=== PATIENT | female | born 1970 | race Caucasian/White ===

== ENCOUNTER 2016-09-12 09:42 | Emergency (ER) | payer OTHER ==
[2016-09-12 09:42] VITALS: BP 149/86
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
[2016-09-12] MEDS ORDERED: HYDR-971 PO (10:55)
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
[2016-09-12] MEDS ORDERED: IBUP800T19 PO (11:17)
[2016-09-12] MEDS ORDERED: HYDROcodone/APAP 7.5/325MG 1 TAB TABLET PO ONE (11:45)
[2016-09-12] MEDS ORDERED: ALBU8.5H8 INH (11:55)
== END 2016-09-12 12:16 | disposition home or self-care (01) ==
LOC: EEVIPCON 09:42 → ER 09:42
DX: S22.32XA Fracture of one rib, left side, initial encounter for closed fracture (principal); S02.2XXA Fracture of nasal bones, initial encounter for closed fracture; S09.90XA Unspecified injury of head, initial encounter; S00.12XA Contusion of left eyelid and periocular area, initial encounter; S00.11XA Contusion of right eyelid and periocular area, initial encounter; T74.11XA Adult physical abuse, confirmed, initial encounter; S01.511A Laceration without foreign body of lip, initial encounter; J45.909 Unspecified asthma, uncomplicated; I10 Essential (primary) hypertension; E11.9 Type 2 diabetes mellitus without complications; Z77.22 Contact with and (suspected) exposure to environmental tobacco smoke (acute) (chronic); Y04.0XXA Assault by unarmed brawl or fight, initial encounter; Y93.89 Activity, other specified; Y99.8 Other external cause status; Y92.89 Other specified places as the place of occurrence of the external cause
CPT/HCPCS: 70450; 70486; 71101; 99284-25

== ENCOUNTER 2016-09-17 18:31 | Emergency (ER) | payer OTHER ==
[~2016-09-17] VITALS: Ht 165.1 cm; Wt 68.0 kg
[~2016-09-17 18:31] MED LIST: ALBU8.5H8 INH; HYDR-971 PO; IBUP800T19 PO
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
[2016-09-17 19:23] LABS: BASO # 0.1 x10^3/uL (0.0-0.2); BASO % 1 % (0-3); EOS # 0.1 x10^3/uL (0.0-0.7); EOS % 1 % (0-3); HEMATOCRIT 39.9 % (36.0-47.0); HEMOGLOBIN 13.6 g/dL (12.0-15.5); LYMPH # 2.5 x10^3/uL (1.0-4.8); LYMPH % 32 % (24-48); MEAN CORPUSCULAR HEMOGLOBIN 31 pg (25-35); MEAN CORPUSCULAR HGB CONC 34 g/dL (31-37); MEAN CORPUSCULAR VOLUME 90 fL (79-100); MONO # 0.4 x10^3/uL (0.0-1.1); MONO % 5 % (0-9); NEUT # 4.8 x10^3uL (1.8-7.7); NEUT % 62 % (31-73); PLATELET COUNT 269 x10^3/uL (140-400); RED BLOOD COUNT 4.43 x10^6/uL (3.50-5.40); RED CELL DISTRIBUTION WIDTH 15.1 % (11.5-14.5); WHITE BLOOD COUNT 7.9 x10^3/uL (4.0-11.0)
[2016-09-17 19:34] LABS: ALBUMIN 3.3 g/dL (3.4-5.0); ALBUMIN/GLOBULIN RATIO 0.9 (1.0-1.7); CALCIUM 8.6 mg/dL (8.5-10.1); CREATININE 1.2 mg/dL (0.6-1.0); GFR 48.6; POTASSIUM 3.9 mmol/L (3.5-5.1); TOTAL BILIRUBIN 0.1 mg/dL (0.2-1.0); TOTAL PROTEIN 7.1 g/dL (6.4-8.2)
[2016-09-17 20:18] LABS: BILIRUBIN,URINE NEG (NEG); CLARITY,URINE HAZY; COLOR,URINE YELLOW; GLUCOSE,URINE NEG (NEG); NITRITE,URINE NEG (NEG); UROBILINOGEN,URINE 0.2 mg/dL (0.2 mg/dL)
[2016-09-17 20:19] LABS: BACTERIA,URINE MOD /HPF (0-FEW); SQUAMOUS EPITHELIAL CELL,UR MOD /LPF; YEAST,URINE PRESENT /HPF
[2016-09-17] MEDS ORDERED: IOHEXOL 300 MG/ML 75 ML VIAL. IV ONE (20:30)
[2016-09-17 20:47] VITALS: BP 109/83
--- NOTE | 2016-09-17 21:23 | RAD ---
EXAM: CT angiography of the chest with intravenous contrast. HISTORY: Elevated d-dimer. TECHNIQUE: Computed tomographic images of the chest were obtained following the administration of 75 cc Omnipaque 300 intravenous contrast according to angiography protocol. Multiplanar reformatting was performed and 3-dimensional maximum intensity projection images were obtained. *One or more of the following individualized dose reduction techniques were utilized for this examination: 1. Automated exposure control. 2. Adjustment of the mA and/or kV according to patient size. 3. Use of iterative reconstruction technique. COMPARISON: None. FINDINGS: There is no evidence of pulmonary embolism. The heart is normal in size. There is trace pericardial fluid or thickening. There is no pathologically enlarged lymph node. There is no infiltrate, effusion or pneumothorax. There is posterior dependent atelectasis. There is lingular atelectasis or scarring. The upper abdomen is unremarkable. There are healed anterior right second and third rib fractures and there is a chronic ununited or partially ununited anterior right fourth rib fracture. IMPRESSION: No evidence of pulmonary embolism or alternative acute pulmonary finding. Electronically signed by: Nereida Antoine MD (09/17/2016 9:19 PM) [facility]
--- NOTE | 2016-09-17 21:23 | EKG ---
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
--- NOTE | 2016-09-18 08:23 | RAD ---
Chest radiograph 2 views 09/17/2016 Clinical indication: Chest pain with known rib fracture deformities. Comparison: 09/12/2016 chest radiograph and same day CTA chest. Findings: Cardiac and mediastinal silhouettes are within normal limits. No pleural effusion, pneumothorax or focal consolidation. Known right rib fracture deformities are not well visualized. Impression: No acute cardiopulmonary abnormality. Please see separately dictated CTA chest same day for additional findings.
== END 2016-09-17 21:40 | disposition home or self-care (01) ==
LOC: ER 18:31
DX: R07.89 Other chest pain (principal); I10 Essential (primary) hypertension; E11.9 Type 2 diabetes mellitus without complications; J45.909 Unspecified asthma, uncomplicated; F14.10 Cocaine abuse, uncomplicated; Z77.22 Contact with and (suspected) exposure to environmental tobacco smoke (acute) (chronic); Z91.041 Radiographic dye allergy status; Z88.0 Allergy status to penicillin; Z91.013 Allergy to seafood
CPT/HCPCS: 36415; 71020; 71275; 80053; 81001; 84484; 85027; 85379; 87086; 93005; 99285; Q9967; 87186

== ENCOUNTER 2020-02-03 04:50 | Emergency (ER) | payer SELFPAY ==
[~2020-02-03] VITALS: Ht 165.1 cm; Wt 115.0 kg
[~2020-02-03 04:50] MED LIST changes: +ALBU2.5V8 INH; -ALBU8.5H8 INH; +HYDR-3165 PO; -HYDR-971 PO
[2020-02-03 04:55] VITALS: BP 140/90
--- NOTE | 2020-02-03 05:02 | PHYS DOC ---
Past History Past Medical History: Asthma, Depression, Diabetes, High Cholesterol, Hypertension Past Medical History MRSA Past Surgical History: Hysterectomy Smoking: Second-hand Alcohol Use: None Drug Use: Cocaine General Adult HPI: HPI: ".. I woke up with this severe dental and jaw pain .. .here on the Lt. my face is swollen.. and even my ear hurts... " Patient is a 49 year old female who presents with above hx and complaints left sided dental pain and facial cellulitis. Patient does have adenopathy at the angle of the jaw. TM is clear on left. There is some adenopathy in anterior chain on the left. No trismus. Does have a few teeth left which appears to have dental decay. Very tender to percussion. No pointing abscess. Does have gingivitis. The most tender teeth are #18 and 15. Patient states she cannot take penicillin because it causes a rash. Patient does not know if she is allergic to other antibiotics. Patient states she quit smoking a few days ago. No recent travel. No history immunosuppression. No history of specific ill contacts. Patient no longer follows with Dr. Boggs. Review of Systems: Review of Systems: Constitutional: Denies fever or chills Eyes: Denies change in visual acuity HENT: Complains of dental pain and left facial cellulitis Respiratory: Denies cough or shortness of breath Cardiovascular: Denies chest pain or edema GI: Denies abdominal pain, nausea, vomiting, bloody stools or diarrhea : Denies dysuria Musculoskeletal: Denies back pain or joint pain Integument: Denies rash Neurologic: Denies headache, focal weakness or sensory changes Endocrine: Denies polyuria or polydipsia Lymphatic: Denies swollen glands Psychiatric: Denies depression or anxiety Family History: Family History: Noncontributory to presentation Current Medications: Current Meds: See nursing for home meds Allergies: Allergies: Allergies Coded Allergies Type Severity Reaction Last Updated Verified Penicillins Allergy Unknown 09/12/16 Yes shellfish derived Allergy Unknown 09/12/16 Yes Physical Exam: PE: Constitutional: Moderate acute distress, non-toxic appearance. [] HENT: Normocephalic, atraumatic, bilateral external ears normal, oropharynx moist, no oral exudates, nose normal. Left facial cellulitis. Left TM is clear. Few teeth left which all appear to have dental decay. No trismus. Does have adenopathy at angle of left mandible. Teeth 15 and 18 are very tender to touch or percussion. No pointing abscess. Eyes: PERRLA, EOMI, conjunctiva normal, no discharge. [] Neck: Normal range of motion, no tenderness, supple, no stridor. Does have adenopathy at the angle jaw and a few areas of adenopathy anterior chain left- sided neck. Cardiovascular:Heart rate regular rhythm, no murmur [] Lungs & Thorax: Bilateral breath sounds equal apex with few scattered wheezes on auscultation [] Abdomen: Bowel sounds normal, soft, no tenderness, no masses, no pulsatile masses. Obese. Old surgery scars. Skin: Warm, dry, no erythema, no rash. Tattoos. Back: No tenderness, no CVA tenderness. [] Extremities: No tenderness, no cyanosis, no clubbing, ROM intact, no edema. [] Neurologic: Alert and oriented X 3, normal motor function, normal sensory function, no focal deficits noted. [] Psychologic: Affect anxious, judgement normal, mood normal. [] EKG: EKG: [] Radiology/Procedures: Radiology/Procedures: [] Heart Score: Risk Factors: Risk Factors: DM, Current or recent (<one month) smoker, HTN, HLP, family history of CAD, obesity. Risk Scores: Score 0 - 3: 2.5% MACE over next 6 weeks - Discharge Home Score 4 - 6: 20.3% MACE over next 6 weeks - Admit for Clinical Observation Score 7 - 10: 72.7% MACE over next 6 weeks - Early Invasive Strategies Course & Med Decision Making: Course & Med Decision Making Pertinent Labs and Imaging studies reviewed. (See chart for details) Patient must follow-up with dentist or oral surgeon. If unable to get into a surgeon or dentist locally. Consider follow-up at [facility]. Patient to also consider follow-up at oral surgery at the [facility]. Patient take Tylenol and ibuprofen for pain. Patient take Bactrim DS twice a day. Rinse mouth with Listerine 4 times a day. Must follow-up. Most likely will need extraction of offending teeth. Impression: 1. Dental Pain 2. Facial Cellulitis [] Dony Disclaimer: Dony Disclaimer: This electronic medical record was generated, in whole or in part, using a voice recognition dictation system. Departure Departure: Referrals: PCP,NO (PCP) Scripts Sulfamethoxazole/Trimethoprim (BACTRIM DS TABLET) 1 Each Tablet 1 TAB PO BID for dental and facial cellulitis for 10 Days, #20 TAB 0 Refills Prov: SAUMYA MÉNDEZ MD 02/03/20 Dony Disclaimer This chart was dictated in whole or in part using Voice Recognition software in a busy, high-work load, and often noisy Emergency Department environment. It m ay contain unintended and wholly unrecognized errors or omissions. SAUMYA MÉNDEZ MD Feb 03, 2020 05:02
[2020-02-03] MEDS ORDERED: SMZ/TMP 800/160MG TABLET. PO ONE ×2 (05:15→05:18)
[2020-02-03] MEDS ORDERED: KETOROLAC 60 MG/2 ML VIAL. IM ONE ×2 (05:15→05:18)
[2020-02-03] MEDS ORDERED: SULF1TAB24 PO (05:18)
== END 2020-02-03 05:40 | disposition home or self-care (01) ==
LOC: ER 04:50
DX: L03.211 Cellulitis of face (principal); K08.89 Other specified disorders of teeth and supporting structures; J45.909 Unspecified asthma, uncomplicated; F32.9 Major depressive disorder, single episode, unspecified; E11.9 Type 2 diabetes mellitus without complications; E78.00 Pure hypercholesterolemia, unspecified; I10 Essential (primary) hypertension; F14.10 Cocaine abuse, uncomplicated; Z77.22 Contact with and (suspected) exposure to environmental tobacco smoke (acute) (chronic); Z86.14 Personal history of Methicillin resistant Staphylococcus aureus infection; Z88.0 Allergy status to penicillin; Z91.013 Allergy to seafood
CPT/HCPCS: 96372; 99283; J1885